=== PATIENT | female | born 1985 | race Caucasian/White ===

== ENCOUNTER 2017-01-05 20:28 | Inpatient (IN) | payer OTHER ==
[~2017-01-05] VITALS: Ht 165.1 cm; Wt 59.4 kg
[2017-01-05 21:40] LABS: RED BLOOD COUNT 3.5 M/UL (4.00-5.10); WHITE BLOOD COUNT 14.7 K/UL (4.5-11.0)
[2017-01-06 03:34] LABS: HEMOGLOBIN 9.2 gm/dl (12.3-15.3)
== END 2017-01-07 17:59 | disposition home or self-care (01) | DRG 774 ==
LOC: GENOP 20:28 → OB 20:50
PROVIDERS: Obstetrics & Gynecology; ADMIT Obstetrics & Gynecology
PROC: 10E0XZZ Delivery of Products of Conception, External Approach (ICD-10-PCS; principal; 2017-01-05)
PROC: 05HM33Z Insertion of Infusion Device into Right Internal Jugular Vein, Percutaneous Approach (ICD-10-PCS; 2017-01-05)
DX: O99.324 Drug use complicating childbirth (principal); O98.42 Viral hepatitis complicating childbirth; B19.20 Unspecified viral hepatitis C without hepatic coma; O99.344 Other mental disorders complicating childbirth; F32.9 Major depressive disorder, single episode, unspecified; O99.824 Streptococcus B carrier state complicating childbirth; Z3A.36 36 weeks gestation of pregnancy; Z37.0 Single live birth; Z85.9 Personal history of malignant neoplasm, unspecified; Z82.49 Family history of ischemic heart disease and other diseases of the circulatory system; Z83.3 Family history of diabetes mellitus; Z84.89 Family history of other specified conditions; Z84.1 Family history of disorders of kidney and ureter; Z28.21 Immunization not carried out because of patient refusal
CPT/HCPCS: 36415; 71010; 80307; 81001; 82800; 85014; 85018; 85025; C1751; J2590; J3010; J3430; J7120

== ENCOUNTER 2017-03-15 13:09 | Emergency (ER) | payer OTHER | END 2017-03-15 13:48 | disposition home or self-care (01) | LOC: ER1 13:09 | DX: K05.219 Aggressive periodontitis, localized, unspecified severity (principal); K02.9 Dental caries, unspecified; F17.210 Nicotine dependence, cigarettes, uncomplicated | CPT/HCPCS: 99282 ==